=== PATIENT | female | born 1945 | race African-American/Black ===

== ENCOUNTER 2020-06-20 02:55 | Emergency (ER) | payer MEDICARE ==
--- NOTE | 2020-06-20 09:34 | CT ---
PRELIMINARY REPORT/[facility]/EMERGENCY AFTER HOURS PROCEDURE: EXAM: CTA Chest with Intravenous Contrast CLINICAL HISTORY: Patient presents with sudden onset of right-sided chest pain approximately 30 minutes ago. She has sh ortness of breath and reports the pain is worse with deep breathing. TECHNIQUE: Axial CTA images of the chest with intravenous contrast. Three-dimensional MIP/volume rendered reform ations were performed. CONTRAST: With; ISOVUE 370. 56 ml COMPARISON: None provided. FINDINGS: PULMONARY ARTERIES There is no intraluminal filling defect suspicious for PE. AORTA No thoracic aortic aneurysm or dissection. LUNGS The lungs are clear. No pulmonary mass. No focal airspace consolidation. Mild chronic obstructive ch anges are identified in both lungs. There is an elevated right hemidiaphragm. PLEURAL SPACES No pleural effusion. No pneumothorax. HEART AND MEDIASTINUM No cardiomegaly. No significant pericardial effusion. LYMPH NODES No lymphadenopathy. BONES No focal osseous abnormality or acute fracture. CHEST WALL AND UPPER ABDOMEN Images through the upper abdomen are unremarkable. The chest wall is unremarkable. Large hiatal ricki ia is noted. IMPRESSION: There is no evidence of pulmonary arterial emboli. Chronic obstructive pulmonary changes are identified in both lungs. No consolidation or effusion. ELECTRONICALLY SIGNED BY: Eneida Beavers DO Jun 20, 2020 4:09:19 AM [employer] This report is intended for review by the ordering physician only, in accordance of law. If you recei ve this report in error, please call [facility] at [phone]. FINAL REPORT EMERGENCY AFTER HOURS CTA CHEST: I agree with the preliminary report provided by [facility]. No definite acute central or segmen fuad pulmonary embolus is demonstrated. There is a moderate size hiatal hernia. There are areas of sub segmental volume loss within both lungs. No pleural effusion, air space consolidation, or pneumothora x demonstrated. Visualized adrenal glands appear within normal limits. No definite acute osseous abno rmality is demonstrated. POS: BH
[2020-06-20] MEDS ORDERED: Iopamidol 370 76% 100 ML VIAL ONE (15:33)
== END 2020-06-20 06:30 | disposition home or self-care (01) ==
LOC: ERS 02:55
DX: I82.4Z2 Acute embolism and thrombosis of unspecified deep veins of left distal lower extremity (principal); E03.9 Hypothyroidism, unspecified; R07.9 Chest pain, unspecified; E78.5 Hyperlipidemia, unspecified; I10 Essential (primary) hypertension; M19.90 Unspecified osteoarthritis, unspecified site; Z79.899 Other long term (current) drug therapy
CPT/HCPCS: 36415; 71275; 84484; 94760; Q9967

== ENCOUNTER 2020-06-25 11:51 | Outpatient (CLI) | payer MEDICARE ==
[2020-06-26 04:28] LABS: SARS-CoV-2 MS2 Positive; SARS-CoV-2 N Gene Negative; SARS-CoV-2 S Gene Negative; SARS-CoV-2 by NAA Not Detected (NotDetected); SARS-CoV-2 orf1ab Negative
== END 2020-06-25 11:52 | disposition home or self-care (01) ==
LOC: LABBT 11:51
PROVIDERS: ATTEND Orthopaedic Surgery
DX: Z01.818 Encounter for other preprocedural examination (principal); S52.502A Unspecified fracture of the lower end of left radius, initial encounter for closed fracture; Z20.828 Contact with and (suspected) exposure to other viral communicable diseases
CPT/HCPCS: 87635; 93005; 93010; U0003

== ENCOUNTER 2020-06-29 11:11 | Day surgery (SDC) | payer MEDICARE ==
[2020-06-26 10:25] VITALS: BMI 34.5
[~2020-06-29 11:11] MED LIST: Bupivacaine HCl 0.5%/Epinephrine 1:200,000/PF 30 ml Vial ONE; Glycopyrrolate 0.2 MG/ML 5 ML SYRINGE ONE; Lidocaine 1% PF 5 ML VIAL ONE; Ondansetron PF 4 MG/2 ML Vial ONE; PROPOFOL 200 MG/20 ML VIAL ONE; Rocuronium Bromide 10 MG/ML (10ML VIAL) ONE; Succinylcholine 200 MG/10 ml SYRINGE FS ONE
[2020-06-29] MEDS ORDERED: Fentanyl 100 MCG/2 ML VIAL ONE ×2 (12:06→12:07)
[2020-06-29] MEDS ORDERED: Midazolam HCl 2 mg/2 ml Vial ONE (12:07)
[2020-06-29] MEDS ORDERED: SUGAMMADEX SODIUM 200 MG/2 ML VIAL ONE (13:21)
--- NOTE | 2020-06-29 13:39 | RAD ---
Exam: Left wrist 2 views: HISTORY: Status post ORIF COMPARISON: 06/22/2020 FINDINGS: Placement of metal plate and screws stabilizing a distal humeral meta-epiphyseal fracture without sig nificant malalignment. No evidence for other new process. IMPRESSION: Status post ORIF distal radius.
--- NOTE | 2020-06-30 13:18 | OP ---
DATE OF PROCEDURE: 06/29/2020 PREOPERATIVE DIAGNOSIS: Left distal radius fracture, extra-articular, two part. POSTOPERATIVE DIAGNOSIS: Left distal radius fracture, extra-articular, two part. PROCEDURE PERFORMED: Open reduction and internal fixation of left distal radius. ANESTHESIA: General. REHABILITATION COORDINATOR: Steve. IMPLANT: Synthes 2.4 mm variable angle LCP 2 column distal radial plate. TOURNIQUET TIME: 36 minutes at 250 mmHg. COMPLICATIONS: None. DRAINS: None. SPECIMEN: None. OUTCOME: Satisfactory. INDICATIONS FOR PROCEDURE: The patient is a 75-year-old lady status post ground level fall sustaining a displaced distal radius fracture, which is unstable. After discussion with the patient including risks and benefits, we decided to proceed with open reduction and internal fixation. Informed consent has been obtained. I believe all questions have been answered. DESCRIPTION OF PROCEDURE: The patient was brought to the operating room and a time-out performed followed by induction of general anesthesia. Next, the patient was positioned supine on the OR table with the left arm on a hand board. A sterile prep and drape were then performed of the left upper extremity. Next, an Esmarch bandage was used to exsanguinate the limb and then tourniquet inflated to 250 mmHg. At this point, a volar radial skin incision was made essentially overlying the flexor carpi radialis. After skin was sharply incised, dissection was carried down to the flexor carpi radialis and staying to the radial border of this tendon. The fascia was incised and then blunt dissection was used to identify the neurovascular bundle. My enrichment assistant provided retraction to protect the neurovascular bundle wall. I further developed the interval between the brachioradialis and the flexor carpi radialis. The digital flexors were reflected to the midline exposing the underlying pronator quadratus. This was sharply incised along the radial border of the distal radius while my enrichment assistant provided retraction of the neurovascular bundle. The muscle belly was then swept to the midline revealing the underlying fracture and distal radial metaphysis. Under direct visualization, the fracture was reduced and held in place provisionally with a K-wire passed through the radial styloid. Next, a volar plate was applied to the distal radius and held in place with a cortical screw proximal to the fracture line and then AP and lateral C-arm images were obtained to confirm acceptable position of the hardware. Next, a total of 4 locking screws were placed in the horizontal limb of the plate capturing the distal fragment. At the completion of this, while my enrichment assistant provided retraction of the neurovascular bundle, 2 additional screws were placed proximal in the plate. The K-wire was then removed and final AP and lateral C-arm images were obtained. The wound was then irrigated with bulb syringe and closed in layers with 0 Vicryl for fascia closure, followed by 2-0 Vicryl and nylon for the skin. Xeroform gauze, Webril, and fiberglass splint were applied to the wrist. The tourniquet was let down and the patient was transferred to recovery room in stable condition. There were no complications. She tolerated the procedure well. Job ID: [id number]
== END 2020-06-29 16:15 | disposition home or self-care (01) ==
LOC: SDC 11:11
PROVIDERS: ATTEND Orthopaedic Surgery
PROC: 0PSJ04Z Reposition Left Radius with Internal Fixation Device, Open Approach (ICD-10-PCS; principal; 2020-06-29)
PROC: 3E0T3BZ Introduction of Anesthetic Agent into Peripheral Nerves and Plexi, Percutaneous Approach (ICD-10-PCS; 2020-06-29)
DX: S52.532A Colles' fracture of left radius, initial encounter for closed fracture (principal); G89.18 Other acute postprocedural pain; E89.2 Postprocedural hypoparathyroidism; I10 Essential (primary) hypertension; G43.909 Migraine, unspecified, not intractable, without status migrainosus; E78.00 Pure hypercholesterolemia, unspecified; E78.5 Hyperlipidemia, unspecified; M19.90 Unspecified osteoarthritis, unspecified site; K21.9 Gastro-esophageal reflux disease without esophagitis; G89.29 Other chronic pain; M54.9 Dorsalgia, unspecified; M10.9 Gout, unspecified; Z87.891 Personal history of nicotine dependence; Z79.01 Long term (current) use of anticoagulants; Z79.52 Long term (current) use of systemic steroids; Z79.899 Other long term (current) drug therapy; Z88.6 Allergy status to analgesic agent; W18.30XA Fall on same level, unspecified, initial encounter
CPT/HCPCS: 25607; 64415; 73100; 76000; C1713 ×2; J0690; J2250; J2405; J2704; J3010

== ENCOUNTER 2023-10-05 16:16 | Observation (INO) | payer OTHER ==
[2023-10-05 18:17] VITALS: BMI 33.5
[2023-10-05] MEDS ORDERED: Calcium Carbonate 500 MG ChewTAB PO PRN (18:31)
[2023-10-05] MEDS ORDERED: Senokot S 8.6-50 MG TAB PO PRN (18:31)
[2023-10-05] MEDS ORDERED: Lorazepam 2 MG/ML VIAL SLOW IVP PRN (18:31)
[2023-10-05] MEDS: levETIRAcetam 500 MG (5 mL) VIAL SLOW IVP SCH (21:59)
[2023-10-06 05:08] LABS: #Basophils 0.1 thou/uL (0.0-0.2); #Eosinphils 0.2 thou/uL (0.0-0.7); #Monocytes 0.7 thou/uL (0.11-0.59); #Neutrophils 2.7 thou/uL (1.40-6.50); %Eosinophils 2.6 % (0.0-10.0); %Lymphocytes 47.4 % (21.0-51.0); %Monocytes 9.7 % (0.0-10.0); Hematocrit 41.2 % (36.0-47.0); Hemoglobin 13.1 g/dL (12.0-16.0); Mean Corpuscular HGB CONC 31.8 g/dL (32.0-36.0); Mean Corpuscular Hemoglobin 29.3 pg (27.0-31.0); Mean Corpuscular Volume 92.2 fl (78.0-98.0); Mean Platelet Volume 9.8 fL (7.4-10.4); Platelet Count 317 10x3/uL (130-400); Red Blood Cell (RBC) Count 4.47 mill/uL (4.20-5.40)
[2023-10-06 05:51] LABS: ALT (SGPT) 16 U/L (8-55); AST (SGOT) 18 U/L (5-34); Albumin 3.6 g/dL (3.4-4.8); Alkaline Phosphatase 143 U/L (40-110); Anion Gap 17 mmol/L (10-20); BUN (Urea Nitrogen) 14 mg/dL (9.8-20.1); Bilirubin, Total 0.3 mg/dL (0.2-1.2); Calc. Creatinine Clearance 72 mL/min (70-130); Calcium 9.1 mg/dL (7.8-10.44); Carbon Dioxide 20 mmol/L (23-31); Chloride 107 mmol/L (98-107); Estimated GFR 66; Glucose 87 mg/dL (83-110); Magnesium 2.5 mg/dL (1.6-2.6); Potassium 4.5 mmol/L (3.5-5.1); Protein, Total 7.6 g/dL (5.8-8.1); Sodium 139 mmol/L (136-145)
[2023-10-06] MEDS: Levothyroxine Sodium 125 MCG TAB PO SCH (06:14)
[2023-10-06] MEDS: PHENobarbital 32.4 MG TAB PO SCH (09:51)
[2023-10-06] MEDS: Enoxaparin 40 MG (0.4 mL) SYRINGE SC SCH (09:51)
[2023-10-06] MEDS: Sertraline 100 MG TAB PO SCH (09:51)
[2023-10-06] MEDS: Furosemide 40 MG TAB PO SCH (09:52)
[2023-10-06] MEDS: Rosuvastatin 10 MG TAB PO SCH (09:52)
[2023-10-06] MEDS: Acetaminophen 325 MG TAB PO PRN (10:06)
[2023-10-06] MEDS: Loperamide HCl 2 MG CAP PO SCH (16:19)
[2023-10-06 16:23] VITALS: BP 143/86; TEMP 98.1
== END 2023-10-06 17:08 | disposition home or self-care (01) ==
LOC: 2SE 18:10
PROVIDERS: ADMIT Internal Medicine; ATTEND Internal Medicine
DX: G40.919 Epilepsy, unspecified, intractable, without status epilepticus (principal); E78.5 Hyperlipidemia, unspecified; G43.909 Migraine, unspecified, not intractable, without status migrainosus; I10 Essential (primary) hypertension; I25.10 Atherosclerotic heart disease of native coronary artery without angina pectoris; E03.9 Hypothyroidism, unspecified; F39 Unspecified mood [affective] disorder; M10.9 Gout, unspecified; Z88.8 Allergy status to other drugs, medicaments and biological substances; Z79.890 Hormone replacement therapy; Z79.899 Other long term (current) drug therapy; Z90.49 Acquired absence of other specified parts of digestive tract; Z90.710 Acquired absence of both cervix and uterus; Z87.891 Personal history of nicotine dependence; R55 Syncope and collapse
CPT/HCPCS: 70450; 71045; 73564; 80053 ×2; 80177; 80184; 80306; 81001; 82550; 83605; 83735 ×2; 83880; 84146; 84484; 85025 ×2; 93005; 95711; 95819; 96372; 96374 ×2; 96376; 99285; G0378 ×2; J1953 ×2; 36415; J1650

== ENCOUNTER 2024-01-23 15:57 | Emergency (ER) | payer OTHER ==
[2024-01-23 17:23] LABS: #Basophils 0.05 10x3/uL (0.0-0.2); %Basophils 0.5 % (0.0-1.0); %Eosinophils 0.3 % (0.0-10.0); %Lymphocytes 26.2 % (21.0-51.0); %Monocytes 8.4 % (0.0-10.0); %Neutrophils 64.1 % (42.0-75.0); Hematocrit 38.4 % (36.0-47.0); Hemoglobin 12.5 g/dL (12.0-16.0); Mean Corpuscular HGB CONC 32.6 g/dL (32.0-36.0); Mean Corpuscular Hemoglobin 30.3 pg (27.0-31.0); Mean Platelet Volume 10.2 fL (7.4-10.4); Platelet Count 336 10x3/uL (130-400); RBC Distribution Width 13.9 % (11.5-14.5); Red Blood Cell (RBC) Count 4.13 mill/uL (4.20-5.40)
[2024-01-23 17:31] LABS: ALT (SGPT) 14 U/L (8-55); AST (SGOT) 16 U/L (5-34); Acetaminophen 11 mcg/mL (10.0-30.0); Albumin 3.3 g/dL (3.4-4.8); Alcohol Less than 10.0 mg/dL (Less than 10); Alkaline Phosphatase 129 U/L (40-110); Anion Gap 23 mmol/L (10-20); BUN (Urea Nitrogen) 18 mg/dL (9.8-20.1); Bilirubin, Total 0.4 mg/dL (0.2-1.2); Calc. Creatinine Clearance 0 mL/min (70-130); Calcium 9.2 mg/dL (7.8-10.44); Carbon Dioxide 15 mmol/L (23-31); Chloride 103 mmol/L (98-107); Estimated GFR 52; Globulin 4.6 g/dL (2.4-3.5); Glucose 72 mg/dL (83-110); Potassium 3.9 mmol/L (3.5-5.1); Protein, Total 7.9 g/dL (5.8-8.1); Salicylate Less than 8.0 mg/dL (15.0-30.0); Sodium 137 mmol/L (136-145)
[2024-01-23 19:01] LABS: Bacteria/HPF None Seen HPF (None Seen); Bilirubin Negative (Negative); Blood, Urine Negative (Negative); CAUTI Indications for Culture Alt mental st,lethar; Clarity Clear (Clear); Glucose, Urine (Dipstick) Normal (Negative); Ketone, Urine 20 mg/dL (Negative); Leukocyte Negative Leu/uL (Negative); Nitrite Negative (Negative); Protein, Urine (Dipstick) Negative (Neg-Trace); RBC/HPF 0-3 HPF (0-3); Specific Gravity, Urine 1.009 (1.002-1.036); Squamous Epithelial 0-3 HPF (0-3); Urobilinogen Normal mg/dL (Less than 2); WBC/HPF None Seen HPF (0-3); pH, Urine 5.5 (5.0-9.0)
[2024-01-23 19:02] LABS: Amphetamine Not Detected (NotDetected); Barbiturates Screen Detected (NotDetected); Benzodiazepine Screen Not Detected (NotDetected); Cocaine Metabolite Screen Not Detected (NotDetected); Methadone Not Detected (NotDetected); Methamphetamine Not Detected (NotDetected); Opiate Screen Not Detected (NotDetected); Oxycodone Screen Not Detected (NotDetected); Phencyclidine (PCP) Not Detected (NotDetected); THC/Cannabinoid Screen Not Detected (NotDetected); Tricyclic Screen Not Detected (NotDetected)
[2024-01-23 19:06] LABS: Urine Culture Reflex No No
[2024-01-23 20:58] LABS: Anion Gap 19 mmol/L (10-20); BUN (Urea Nitrogen) 15 mg/dL (9.8-20.1); Calc. Creatinine Clearance 0 mL/min (70-130); Calcium 8.9 mg/dL (7.8-10.44); Carbon Dioxide 16 mmol/L (23-31); Chloride 106 mmol/L (98-107); Estimated GFR 58; Glucose 101 mg/dL (83-110); Potassium 3.5 mmol/L (3.5-5.1); Sodium 137 mmol/L (136-145)
[2024-01-23] MEDS ORDERED: Acetaminophen 500 MG TAB ONE (21:27)
== END 2024-01-23 21:31 | disposition home or self-care (01) ==
LOC: ERS 15:57
DX: R56.9 Unspecified convulsions (principal); M25.552 Pain in left hip; M25.562 Pain in left knee; I10 Essential (primary) hypertension
CPT/HCPCS: 36415; 51701; 80053; 80177; 80306; 80307; 81001; 83605; 85025; 93005

== ENCOUNTER 2024-02-12 11:17 | Emergency (ER) | payer OTHER ==
[2024-02-12] MEDS ORDERED: levETIRAcetam 500 MG (5 mL) VIAL ONE (11:25)
[2024-02-12 11:41] LABS: #Basophils 0.06 10x3/uL (0.0-0.2); %Basophils 0.7 % (0.0-1.0); %Eosinophils 0.3 % (0.0-10.0); %Lymphocytes 35.2 % (21.0-51.0); %Monocytes 10.2 % (0.0-10.0); %Neutrophils 53.3 % (42.0-75.0); Hematocrit 37.5 % (36.0-47.0); Hemoglobin 12.8 g/dL (12.0-16.0); Mean Corpuscular HGB CONC 34.1 g/dL (32.0-36.0); Mean Corpuscular Hemoglobin 30.2 pg (27.0-31.0); Mean Corpuscular Volume 88.4 fL (78.0-98.0); Mean Platelet Volume 9.8 fL (7.4-10.4); Platelet Count 324 10x3/uL (130-400); RBC Distribution Width 13.7 % (11.5-14.5); Red Blood Cell (RBC) Count 4.24 mill/uL (4.20-5.40)
[2024-02-12 11:56] LABS: ALT (SGPT) 14 U/L (8-55); AST (SGOT) 12 U/L (5-34); Albumin 3.3 g/dL (3.4-4.8); Alkaline Phosphatase 126 U/L (40-110); Anion Gap 13 mmol/L (10-20); BUN (Urea Nitrogen) 10 mg/dL (9.8-20.1); Bilirubin, Total 0.4 mg/dL (0.2-1.2); Calc. Creatinine Clearance 0 mL/min (70-130); Calcium 9.1 mg/dL (7.8-10.44); Carbon Dioxide 18 mmol/L (23-31); Chloride 110 mmol/L (98-107); Estimated GFR 73; Globulin 3.8 g/dL (2.4-3.5); Glucose 83 mg/dL (83-110); Potassium 3.4 mmol/L (3.5-5.1); Protein, Total 7.1 g/dL (5.8-8.1); Sodium 138 mmol/L (136-145)
[2024-02-12 13:14] LABS: Bilirubin Negative (Negative); Blood, Urine Negative (Negative); CAUTI Indications for Culture Alt mental st,lethar; Clarity Clear (Clear); Glucose, Urine (Dipstick) Normal (Negative); Ketone, Urine Negative (Negative); Leukocyte Negative Leu/uL (Negative); Nitrite Negative (Negative); Protein, Urine (Dipstick) Negative (Neg-Trace); RBC/HPF 0-3 HPF (0-3); Specific Gravity, Urine 1.019 (1.002-1.036); Urobilinogen Normal mg/dL (Less than 2); WBC/HPF 0-3 HPF (0-3)
[2024-02-12 13:15] LABS: Bacteria/HPF 1+ HPF (None Seen)
[2024-02-12 13:16] LABS: Urine Culture Reflex No No
[2024-02-12 13:35] LABS: Amphetamine Not Detected (NotDetected); Barbiturates Screen Detected (NotDetected); Benzodiazepine Screen Not Detected (NotDetected); Cocaine Metabolite Screen Not Detected (NotDetected); Methadone Not Detected (NotDetected); Methamphetamine Not Detected (NotDetected); Opiate Screen Not Detected (NotDetected); Oxycodone Screen Not Detected (NotDetected); Phencyclidine (PCP) Not Detected (NotDetected); THC/Cannabinoid Screen Not Detected (NotDetected); Tricyclic Screen Not Detected (NotDetected)
== END 2024-02-12 14:08 | disposition home or self-care (01) ==
LOC: ERS 11:17
DX: R56.9 Unspecified convulsions (principal); I10 Essential (primary) hypertension; Z79.899 Other long term (current) drug therapy
CPT/HCPCS: 80053; 80306; 81001; 85025; 93005; J1953

== ENCOUNTER 2024-07-23 16:41 | Emergency (ER) | payer OTHER ==
[2024-07-23] MEDS ORDERED: levETIRAcetam 500 MG (5 mL) VIAL ONE (17:04)
[2024-07-23 18:43] LABS: #Basophils 0.06 10x3/uL (0.0-0.2); %Basophils 0.6 % (0.0-1.0); %Eosinophils 1.1 % (0.0-10.0); %Lymphocytes 39.7 % (21.0-51.0); %Monocytes 9.6 % (0.0-10.0); %Neutrophils 48.7 % (42.0-75.0); Hematocrit 36.4 % (36.0-47.0); Hemoglobin 12.1 g/dL (12.0-16.0); Mean Corpuscular HGB CONC 33.2 g/dL (32.0-36.0); Mean Corpuscular Hemoglobin 29.6 pg (27.0-31.0); Mean Platelet Volume 9.8 fL (7.4-10.4); Platelet Count 240 10x3/uL (130-400); Red Blood Cell (RBC) Count 4.09 mill/uL (4.20-5.40)
[2024-07-23 19:02] LABS: ALT (SGPT) 17 U/L (8-55); AST (SGOT) 24 U/L (5-34); Albumin 3.3 g/dL (3.4-4.8); Alkaline Phosphatase 154 U/L (40-110); Anion Gap 14 mmol/L (10-20); BUN (Urea Nitrogen) 19 mg/dL (9.8-20.1); Bilirubin, Total 0.1 mg/dL (0.2-1.2); Calc. Creatinine Clearance 0 mL/min (70-130); Calcium 8.4 mg/dL (7.8-10.44); Carbon Dioxide 19 mmol/L (23-31); Chloride 107 mmol/L (98-107); Estimated GFR 63; Globulin 3.9 g/dL (2.4-3.5); Glucose 97 mg/dL (83-110); Potassium 3.6 mmol/L (3.5-5.1); Protein, Total 7.2 g/dL (5.8-8.1); Sodium 136 mmol/L (136-145)
== END 2024-07-23 20:27 | disposition home or self-care (01) ==
LOC: ERS 16:41
DX: S70.02XA Contusion of left hip, initial encounter (principal); G40.909 Epilepsy, unspecified, not intractable, without status epilepticus; I10 Essential (primary) hypertension; W19.XXXA Unspecified fall, initial encounter
CPT/HCPCS: 70450; 72170; 72192; 73502 ×2; 80053; 80177; 84146; 85025; 93005; J1953; 36415

== ENCOUNTER 2024-09-03 17:34 | Emergency (ER) | payer OTHER ==
[2024-09-03] MEDS ORDERED: Acetaminophen 500 MG TAB ONE (20:04)
[2024-09-03] MEDS ORDERED: fentaNYL 50 mcg/mL 1 mL Vial ONE (20:04)
[2024-09-03] MEDS ORDERED: levETIRAcetam 500 MG (5 mL) VIAL ONE (20:05)
[2024-09-03 20:28] LABS: #Basophils 0.08 10x3/uL (0.0-0.2); %Basophils 0.8 % (0.0-1.0); %Eosinophils 1.2 % (0.0-10.0); %Lymphocytes 51.3 % (21.0-51.0); %Monocytes 6.6 % (0.0-10.0); %Neutrophils 39.9 % (42.0-75.0); Hemoglobin 11.5 g/dL (12.0-16.0); Mean Corpuscular HGB CONC 32.9 g/dL (32.0-36.0); Mean Corpuscular Hemoglobin 29.6 pg (27.0-31.0); Mean Platelet Volume 9.4 fL (7.4-10.4); Platelet Count 300 10x3/uL (130-400); RBC Distribution Width 15.4 % (11.5-14.5); Red Blood Cell (RBC) Count 3.89 mill/uL (4.20-5.40)
[2024-09-03 21:13] LABS: ALT (SGPT) 14 U/L (Less than 34); AST (SGOT) 24 U/L (11-34); Albumin 3.5 g/dL (3.1-4.5); Alkaline Phosphatase 145 U/L (40-110); Anion Gap 15 mmol/L (10-20); BUN (Urea Nitrogen) 12 mg/dL (9.8-20.1); Bilirubin, Total 0.1 mg/dL (0.3-1.2); Calc. Creatinine Clearance 0 mL/min (70-130); Calcium 8.6 mg/dL (7.8-10.44); Carbon Dioxide 16 mmol/L (23-31); Chloride 112 mmol/L (98-107); Estimated GFR 68; Globulin 4.1 g/dL (2.4-3.5); Glucose 85 mg/dL (83-110); Lipase 11 U/L (8-78); Potassium 3.7 mmol/L (3.5-5.1); Protein, Total 7.6 g/dL (5.8-8.1); Sodium 139 mmol/L (136-145)
[2024-09-03 21:15] LABS: Troponin I 0.012 ng/mL (< 0.028)
[2024-09-03 21:24] LABS: INR-International Normal Ratio 1.3; Prothrombin Time 15.9 sec (12.0-14.7)
[2024-09-03 21:25] LABS: PTT 32.4 sec (22.9-36.1)
[2024-09-03 21:26] LABS: D-Dimer Test 0.35 mcg/mL (0.27-0.43)
== END 2024-09-03 23:07 | disposition home or self-care (01) ==
LOC: ERS 17:34
DX: R56.9 Unspecified convulsions (principal); I10 Essential (primary) hypertension; E03.9 Hypothyroidism, unspecified; E78.5 Hyperlipidemia, unspecified; Z79.890 Hormone replacement therapy; Z79.899 Other long term (current) drug therapy
CPT/HCPCS: 70450; 71045; 73562; 80177; 83605; 83690; 83735; 83880; 84484; 85379; 85610; 85730; 93005; 96365; 96366; 96375; 99285; J1953; J3010; 36415; 80053; 84443; 85025